=== PATIENT | male | born 1985 | race Caucasian/White ===

== ENCOUNTER 2019-04-06 21:27 | Emergency (ER) | payer BC ==
[~2019-04-06] VITALS: Ht 170.2 cm; Wt 77.7 kg
[2019-04-06] MEDS ORDERED: TYLENOL WITH C1 EACH PO (21:54)
== END 2019-04-06 21:55 | disposition home or self-care (01) ==
LOC: ED 21:27
DX: S05.02XA Injury of conjunctiva and corneal abrasion without foreign body, left eye, initial encounter (principal); Z88.0 Allergy status to penicillin; Z88.6 Allergy status to analgesic agent; X58.XXXA Exposure to other specified factors, initial encounter
CPT/HCPCS: 99283